=== PATIENT | female | born 1995 | race Caucasian/White ===

== ENCOUNTER 2016-06-09 19:49 | Outpatient (CLI) | payer MEDICARE | END 2016-06-09 21:19 | disposition home or self-care (01) | LOC: GENOP 19:49 | DX: O26.893 Other specified pregnancy related conditions, third trimester (principal); R10.9 Unspecified abdominal pain; M25.571 Pain in right ankle and joints of right foot; Z3A.32 32 weeks gestation of pregnancy; Z88.0 Allergy status to penicillin | CPT/HCPCS: G0463 ==

== ENCOUNTER 2016-06-09 21:23 | Emergency (ER) | payer MEDICARE | END 2016-06-09 22:12 | disposition home or self-care (01) | LOC: ER1 21:23 | DX: S93.401A Sprain of unspecified ligament of right ankle, initial encounter (principal); X50.1XXA Overexertion from prolonged static or awkward postures, initial encounter | CPT/HCPCS: 73610; 99283 ==

== ENCOUNTER 2016-06-16 15:49 | Outpatient (CLI) | payer MEDICARE | END 2016-06-16 17:16 | disposition home or self-care (01) | LOC: GENOP 15:49 | DX: O99.513 Diseases of the respiratory system complicating pregnancy, third trimester (principal); J11.1 Influenza due to unidentified influenza virus with other respiratory manifestations; Z3A.33 33 weeks gestation of pregnancy | CPT/HCPCS: 87081; 87880; G0463 ==

== ENCOUNTER 2016-07-28 16:28 | Outpatient (CLI) | payer MEDICARE ==
[~2016-07-28] VITALS: Ht 154.9 cm; Wt 102.1 kg
== END 2016-07-28 19:22 | disposition home or self-care (01) ==
LOC: GENOP 16:28
DX: O42.912 Preterm premature rupture of membranes, unspecified as to length of time between rupture and onset of labor, second trimester (principal); O99.712 Diseases of the skin and subcutaneous tissue complicating pregnancy, second trimester; R21 Rash and other nonspecific skin eruption; Z3A.26 26 weeks gestation of pregnancy
CPT/HCPCS: 81001; 83518; 96372; J2930

== ENCOUNTER 2016-08-02 18:45 | Inpatient (IN) | payer MEDICARE ==
[~2016-08-02] VITALS: Ht 154.9 cm; Wt 102.1 kg
[2016-08-02 19:41] LABS: HEMOGLOBIN 10.8 gm/dl (12.3-15.3); RED BLOOD COUNT 3.88 M/UL (4.00-5.10); WHITE BLOOD COUNT 11.3 K/UL (4.5-11.0)
[2016-08-04 05:01] LABS: HEMOGLOBIN 9.8 gm/dl (12.3-15.3)
[2016-08-05] MEDS ORDERED: COLACE 100MG C100 MG PO (10:55)
== END 2016-08-05 13:54 | disposition home or self-care (01) | DRG 774 ==
LOC: OB 18:45
PROVIDERS: Obstetrics & Gynecology; ADMIT Obstetrics & Gynecology
PROC: 0UQMXZZ Repair Vulva, External Approach (ICD-10-PCS; principal; 2016-08-02)
PROC: 10E0XZZ Delivery of Products of Conception, External Approach (ICD-10-PCS; principal; 2016-08-02)
PROC: 10907ZC Drainage of Amniotic Fluid, Therapeutic from Products of Conception, Via Natural or Artificial Opening (ICD-10-PCS; principal; 2016-08-02)
PROC: 3E0234Z Introduction of Serum, Toxoid and Vaccine into Muscle, Percutaneous Approach (ICD-10-PCS; 2016-08-04)
DX: O48.0 Post-term pregnancy (principal); O98.32 Other infections with a predominantly sexual mode of transmission complicating childbirth; Z68.41 Body mass index [BMI] 40.0-44.9, adult; Z3A.40 40 weeks gestation of pregnancy; O71.82 Other specified trauma to perineum and vulva; Z37.0 Single live birth; O99.214 Obesity complicating childbirth; E66.01 Morbid (severe) obesity due to excess calories; A56.8 Sexually transmitted chlamydial infection of other sites; R21 Rash and other nonspecific skin eruption; Z83.3 Family history of diabetes mellitus; Z82.49 Family history of ischemic heart disease and other diseases of the circulatory system; O99.344 Other mental disorders complicating childbirth; F41.8 Other specified anxiety disorders; O75.89 Other specified complications of labor and delivery; J45.909 Unspecified asthma, uncomplicated; L81.8 Other specified disorders of pigmentation; Z88.0 Allergy status to penicillin; Z23 Encounter for immunization
CPT/HCPCS: 36415; 51702; 81001; 82800; 85014; 85018; 85025; 90707; 90715; J2300; J2590; J2795; J3010; J3430; J7120

== ENCOUNTER 2020-05-29 21:36 | Outpatient (CLI) | payer OTHER ==
[~2020-05-29 21:36] MED LIST: BENTYL 10MG CAP10 MG PO; COLACE 100MG C100 MG PO; IBUPROFEN600 MG PO; LORTAB 5-325 M1 EACH PO; PROTONIX40 MG PO; TUMS ULTRA400 MG PO; TYLENOL 500 MG500 MG PO; ZOFRAN4 MG PO
== END 2020-05-30 13:04 | disposition home or self-care (01) ==
LOC: GENOP 21:36
DX: O60.03 Preterm labor without delivery, third trimester (principal); O99.513 Diseases of the respiratory system complicating pregnancy, third trimester; J45.909 Unspecified asthma, uncomplicated; Z3A.31 31 weeks gestation of pregnancy; Z88.0 Allergy status to penicillin
CPT/HCPCS: 59025; 81001; 82731; 96372; J0702

== ENCOUNTER 2020-07-16 17:20 | Inpatient (IN) | payer OTHER ==
[~2020-07-16] VITALS: Ht 154.9 cm; Wt 105.7 kg
[2020-07-16 18:03] LABS: HEMOGLOBIN 11.7 gm/dl (12.3-15.3); RED BLOOD COUNT 3.9 M/UL (4.00-5.10)
[2020-07-18 03:27] LABS: HEMOGLOBIN 10.9 gm/dl (12.3-15.3)
[2020-07-18] MEDS ORDERED: IBUPROFEN800 MG PO (11:43)
[2020-07-18] MEDS ORDERED: DOCUSATE SODIU100 MG PO (11:43)
== END 2020-07-18 15:41 | disposition home or self-care (01) | DRG 807 ==
LOC: GENOP 17:20 → OB 17:44
PROVIDERS: Obstetrics & Gynecology; ADMIT Obstetrics & Gynecology
PROC: 10E0XZZ Delivery of Products of Conception, External Approach (ICD-10-PCS; principal; 2020-07-16)
PROC: 0U7C7ZZ Dilation of Cervix, Via Natural or Artificial Opening (ICD-10-PCS; 2020-07-16)
PROC: 10907ZC Drainage of Amniotic Fluid, Therapeutic from Products of Conception, Via Natural or Artificial Opening (ICD-10-PCS; 2020-07-16)
PROC: 3E033VJ Introduction of Other Hormone into Peripheral Vein, Percutaneous Approach (ICD-10-PCS; 2020-07-16)
PROC: 4A1HXCZ Monitoring of Products of Conception, Cardiac Rate, External Approach (ICD-10-PCS; 2020-07-16)
DX: O13.4 Gestational [pregnancy-induced] hypertension without significant proteinuria, complicating childbirth (principal); Z37.0 Single live birth; Z3A.38 38 weeks gestation of pregnancy; O99.214 Obesity complicating childbirth; E66.9 Obesity, unspecified; O36.5930 Maternal care for other known or suspected poor fetal growth, third trimester, not applicable or unspecified; O76 Abnormality in fetal heart rate and rhythm complicating labor and delivery; Z20.822 Contact with and (suspected) exposure to COVID-19
CPT/HCPCS: 36415; 51702; 81001; 82800; 85014; 85018; 85025; 90715; J2590; J2795; J7120; U0002